=== PATIENT | male | born 1965 | race Caucasian/White ===

== ENCOUNTER 2016-11-06 12:54 | Emergency (ER) | payer OTHER, BC | END 2016-11-06 15:30 | disposition home or self-care (01) | LOC: ER 12:54 | DX: M51.17 Intervertebral disc disorders with radiculopathy, lumbosacral region (principal); Z88.5 Allergy status to narcotic agent; Z79.899 Other long term (current) drug therapy | CPT/HCPCS: 96372; J2550 ==